=== PATIENT | male | born 1965 | race Caucasian/White ===

== ENCOUNTER 2024-02-16 07:38 | Observation (INO) ==
--- NOTE | 2024-02-16 08:26 | Emergency Department Note ---
History of Present Illness General Chief complaint: Leg Injury/Pain Stated complaint: RIGHT LEG PAIN - Time Seen by Provider: 02/16/24 08:02 History of Present Illness Maximum Pain Intensity: 7 This is a 58-year-old male with history of compartment syndrome in 2017 who presents to the emergency department via private vehicle with complaints of "right leg pain". The patient states that in 2017 he had trauma to his right leg that led to compartment syndrome and required surgery. Patient notes he has been doing well since that time. Over the past week or so he notes some sinus congestion and did a tele doc appointment and was prescribed Augmentin. He felt much better Friday. He notes that yesterday morning when he awoke he noted what he describes as "sciatica" type pain radiating down the entire right leg but notes that overnight now notes severe discomfort to the right anterior pretibial region. No real aggravating or alleviating factors but he notes that with plantarflexion of the right foot there is severe right anterior leg pain. Patient denies any fevers or chills. No nausea or vomiting. Patient does take Crestor, otherwise healthy. No abdominal pain. Minor right lower back pain in the recent past but none at the present time. No lower extremity weakness, bowel or bladder incontinence, numbness or tingling in genital region. Home Medications Medication Instructions Recorded Confirmed Type amoxicillin 500 mg-potassium 1 tab PO Q8H 02/16/24 02/16/24 History clavulanate 125 mg tablet gabapentin 300 mg capsule 300 mg PO BID 02/16/24 02/16/24 History rosuvastatin 10 mg tablet 10 mg PO DAILY 02/16/24 02/16/24 History Allergies Allergy/AdvReac Type Severity Reaction Status Date / Time No Known Allergies Allergy Unverified 02/16/24 14:04 Past Med/Surg History Problem List (Updated 02/16/24 @ 14:42 by Denton Combs PA-C) Lumbar radiculopathy, acute (Acute) Sinusitis Right leg pain (Acute) Lumbar radicular pain Medical History (Updated 02/16/24 @ 14:42 by Denton Combs PA-C) Mixed hyperlipidemia Surgical History (Updated 02/16/24 @ 14:28 by Luci Montes PA-C) H/O fasciotomy H/O hand surgery History of appendectomy Family History (Updated 02/16/24 @ 14:29 by Luci Montes PA-C) Brother Diabetes Social History Smoking Status: Never smoker Preferred Language: German Feels Safe at Home: Yes Review of Systems A total of 10 systems reviewed and were otherwise negative Physical Exam Vital Signs Vital Signs - 24 hr 02/16/24 07:48 02/16/24 08:52 02/16/24 09:56 Temperature 36.8 C Temperature Source Temporal Artery Scan Pulse Rate 76 66 Pulse Rate [Apical] Respiratory Rate 20 Respiratory Effort / Characteristics Non-Labored Spontaneous Respiratory Depth Normal Respiratory Pattern Blood Pressure 150/90 H Blood Pressure [Left Arm] Blood Pressure Mean 110 Blood Pressure Mean [Left Arm] Blood Pressure Position [Left Arm] Pulse Oximetry 97 96 Oxygen Delivery Method Room Air Room Air Sepsis Recent Fever Within 48 Hours No Sepsis New/Unexplained Change in Mental Status No Sepsis Action Taken by Nursing No Action Required 02/16/24 10:34 02/16/24 11:21 02/16/24 13:00 Temperature Temperature Source Pulse Rate Pulse Rate [Apical] 69 61 71 Respiratory Rate 18 21 18 Respiratory Effort / Characteristics Non-Labored Spontaneous Non-Labored Spontaneous Respiratory Depth Normal Normal Respiratory Pattern Regular Blood Pressure Blood Pressure [Left Arm] 131/77 106/71 118/78 Blood Pressure Mean Blood Pressure Mean [Left Arm] 95 82 91 Blood Pressure Position [Left Arm] Sitting Semi-fowlers Pulse Oximetry 96 94 97 Oxygen Delivery Method Room Air Room Air Room Air Sepsis Recent Fever Within 48 Hours Sepsis New/Unexplained Change in Mental Status Sepsis Action Taken by Nursing 02/16/24 13:55 Temperature Temperature Source Pulse Rate 89 Pulse Rate [Apical] Respiratory Rate Respiratory Effort / Characteristics Respiratory Depth Respiratory Pattern Blood Pressure Blood Pressure [Left Arm] Blood Pressure Mean Blood Pressure Mean [Left Arm] Blood Pressure Position [Left Arm] Pulse Oximetry Oxygen Delivery Method Sepsis Recent Fever Within 48 Hours Sepsis New/Unexplained Change in Mental Status Sepsis Action Taken by Nursing VITAL SIGNS - Vital signs and nursing notes were reviewed. Stable and afebrile. GENERAL - 58-year-old male appearing his stated age who is in no acute distress. Communicates well with provider and answers questions appropriately. SKIN - R anterior pretib scaring. No ecchymosis. HEAD - NC/AT. EYES - PERRL with EOMI bilaterally. Sclera anicteric. EARS - No deformities of external structures noted on gross examination bilaterally. NOSE - Midline and without cyanosis. No epistaxis or purulent drainage noted. MOUTH/OROPHARYNX - Without perioral cyanosis. NECK - Neck with FROM. No nuchal rigidity. LUNGS - Chest wall symmetric without accessory muscle use, intercostals retractions, or central cyanosis. Normal vesicular breath sounds CTA B/L. No wheezes, rales, or rhonchi appreciated. CARDIAC - RRR ABDOMEN - Abdominal contour normal without pulsations or visible masses. BS normoactive all four quadrants. No tenderness, palpable masses, hepatosplenomegaly, or ascites noted. EXTREMITIES - No clubbing or peripheral cyanosis. No pretibial edema present. Patient does have chronic changes to the integument overlying the pretibial soft tissues on the right, no palpable cord. Right dorsalis pedis pulse within normal limits. +5/5 strength noted in UE/LE bilaterally. NEUROLOGIC - Cranial nerves XII grossly intact. PSYCH -alert, oriented and pleasant on exam. Pt is very pleasant and interacts well with examiner. Course Administered Medications Discontinued Medications Dexamethasone Sodium Phosphate (DexamethasonePf 10 Mg/Ml Vial) 10 mg IV NOW ONE Stop: 02/16/24 13:22 Last Admin: 02/16/24 13:33 Dose: 10 mg Documented By: HEATH Hydromorphone HCl (Hydromorphone Inj 0.5 Mg/0.5 Ml Syr) 0.5 mg IV NOW STA Stop: 02/16/24 08:21 Last Admin: 02/16/24 08:46 Dose: 0.5 mg Documented By: BALJIT Hydromorphone HCl (Hydromorphone Inj 0.5 Mg/0.5 Ml Syr) 0.5 mg IV NOW STA Stop: 02/16/24 10:28 Last Admin: 02/16/24 10:38 Dose: 0.5 mg Documented By: ZINA Ketorolac Tromethamine (Ketorolac Tromethamine 15 Mg/Ml Vial) 10 mg IV NOW ONE Stop: 02/16/24 13:23 Last Admin: 02/16/24 13:33 Dose: 10 mg Documented By: HEATH Ondansetron HCl (Ondansetron Inj 2 Mg/Ml 2 Ml Vial) 4 mg IV NOW STA Stop: 02/16/24 08:21 Last Admin: 02/16/24 08:46 Dose: 4 mg Documented By: Admin: 02/16/24 08:45 Dose: 4 mg Documented By: BALJIT Medical Decision Making Laboratory Data 02/16/24 08:29 02/16/24 09:50 Lab Results 02/16/24 02/16/24 Range/Units 08:29 09:50 WBC 6.29 (4.8-10.8) K/ul RBC 5.38 (4.70-6.10) M/uL Hgb 14.6 (14.0-18.0) g/dl Hct 43.9 (42.0-52.0) % MCV 81.6 (80.0-100.0) fL MCH 27.1 (25.0-34.0) pg MCHC 33.3 (32.0-36.0) g/dL RDW Std Deviation 36.4 (36.4-46.3) fL RDW Coeff of Justin 12.4 (11.5-14.5) % Plt Count 241 (130-400) K/uL MPV 10.1 (9.4-12.4) fL Immature Gran % (Auto) 1.9 % Neut % (Auto) 56.6 % Lymph % (Auto) 27.3 % [place] % (Auto) 10.2 % Eos % (Auto) 3.0 % Baso % (Auto) 1.0 % Neut # (Auto) 3.56 (1.40-6.50) K/uL Lymph # (Auto) 1.72 (1.20-3.40) K/uL [place] # (Auto) 0.64 H (0.11-0.59) K/uL Eos # (Auto) 0.19 (0.00-0.50) K/uL Baso # (Auto) 0.06 (0.00-0.20) K/uL Immature Gran # (Auto) 0.12 (0.01-0.20) K/uL PT Cancelled 10.5 INR Cancelled 1.0 APTT Cancelled 23 PTT Ratio Cancelled 0.9 Sodium 140 (136-145) mmol/L Potassium TNP 4.0 Chloride 105 (98-107) mmol/L Carbon Dioxide 27 (21-32) mmol/L Anion Gap 8 (3-11) BUN 17 (6-23) mg/dl Creatinine 0.92 (0.6-1.4) mg/dl Est Cr Clr Drug Dosing 94.3 ml/min eGFR 97.02 BUN/Creatinine Ratio 18.5 (10-20) Glucose 107 H (70-99(Fasting)) mg/dl Calcium 9.5 (8.6-10.3) mg/dl Total Bilirubin 0.9 (0.2-1.0) mg/dl AST TNP 19 ALT 22 (7-52) U/L Alkaline Phosphatase 68 (34-104) U/L Total Creatine Kinase 140 (30-223) U/L Total Protein 7.8 (6.0-8.3) gm/dl Albumin 4.3 (3.4-5.0) gm/dl Globulin 3.5 (2.5-4.0) gm/dl Albumin/Globulin Ratio 1.2 (0.9-2) Imaging Data Radiologist's Impression: Duplex Scan Lower Extremity Artery 02/16/24 08:20 RIGHT LOWER EXTREMITY ARTERIAL DOPPLER ULTRASOUND CLINICAL HISTORY: Severe right leg pain. COMPARISON STUDY: No previous studies for comparison. TECHNIQUE: Grayscale, color and duplex Doppler sonography of the arterial system of the right lower extremity was performed. FINDINGS: There is minimal atherosclerotic plaque within the right lower extremity. No elevated velocities were identified. There is triphasic flow within the right common femoral, superficial femoral and popliteal arteries. There is biphasic flow within the right calf vessels. Vessels were patent. IMPRESSION: 1. No evidence for a hemodynamically significant stenosis within the right lower extremity. Minimal atherosclerotic plaque within the right lower extremity. 2. Patent vessels. ACT 112: Negative or not required by law. Electronically signed by: King Yao M.D. 02/16/2024 9:56 AM Tibia/Fibula X-Ray 02/16/24 08:20 XR tibia fibula RT 2V CLINICAL HISTORY: R leg pain, hx compartment syndrome TECHNIQUE: 2 radiographic views of the right leg were obtained. Comparison: None available at the time of this dictation. FINDINGS: Old healed fracture of the mid fibula is seen. Joint spaces are well-preserved. No soft tissue abnormality is seen. IMPRESSION: No evidence of acute osseous injury. Old healed fracture in the mid fibula is again seen. ACT 112: Negative or not required by law. Electronically signed by: Jamie Ng M.D. 02/16/2024 8:55 AM Venous Doppler Study 02/16/24 08:20 US venous doppler LE RT CLINICAL HISTORY: Severe R leg pain TECHNIQUE: Right lower extremity real-time compression venous ultrasound with Color Doppler imaging. Utilizing real-time ultrasonic imaging multiple real time high-resolution ultrasonic images with compression and noncompression maneuvers of the deep venous system in addition to color doppler imaging were performed from the common femoral vein through the proximal calf veins. COMPARISON: None available at the time of this dictation. FINDINGS/IMPRESSION: No deep venous thrombus, there is normal compressibility of the deep venous system from the common femoral vein through the proximal calf veins. No superficial venous thrombosis is identified. ACT 112: Negative or not required by law. Electronically signed by: Jamie Ng M.D. 02/16/2024 9:54 AM Lumbar Spine MRI 02/16/24 10:27 MRI OF THE LUMBAR SPINE WITHOUT CONTRAST CLINICAL HISTORY: Severe right leg pain, right low back pain. COMPARISON STUDY: No previous studies for comparison. TECHNIQUE: Utilizing a 1.5 Vandana magnet and dedicated coil, multiplanar, multiecho imaging of the lumbar spine was performed without IV contrast. FINDINGS: For purposes of numbering on this exam, the L5-S1 disc space is assigned to axial image 27 of 30. There is straightening of the lumbar lordosis. There is no lumbar spine fractures. Exam is mildly compromised by motion artifact. The conus terminates at the T12-L1 level. Paravertebral soft tissues are unremarkable. Several Schmorl's nodes are noted. Loss of height of the superior endplates of L2 on L3 is chronic. A 3.9 cm T2 hypointense lesion within the left iliac bone may contain fluid fluid levels. This is likely benign. Moderate multilevel degenerative disc disease and mild facet arthrosis is present. L1-2: The central canal and neural foramen are patent. L2-3: There is mild disc bulge. The central canal and neural foramen are patent. L3-4: There is mild disc bulge. The central canal is patent. There is mild bilateral neural foraminal stenosis. L4-5: Moderate to space narrowing is noted with disc bulge. Superimposed right foraminal disc protrusion is present. There is moderate narrowing of the right lateral recess and moderate to severe narrowing of the right neural foramen. There is moderate narrowing of the left neural foramen. There is no significant central canal stenosis. L5-S1: Moderate disc space narrowing is noted. There is disc bulge. Right foraminal annular tear with disc protrusion is present. There is mild facet arthrosis. The central canal is patent. There is moderate bilateral neural foraminal stenosis, greater on the left. IMPRESSION: 1. Moderate multilevel degenerative disc disease and moderate facet arthrosis within the lumbar spine. 2. Multilevel disc bulges. Superimposed right foraminal disc protrusion at L4- L5. Findings result in moderate narrowing of the right lateral recess and moderate to severe narrowing of the right neural foramen. 3. Multilevel neural foraminal stenosis, as above. 4. No significant central canal stenosis. 5. Exam mildly compromised by motion artifact. No acute fractures. ACT 112: Negative or not required by law. Electronically signed by: King Yao M.D. 02/16/2024 12:28 PM MDM Narrative Patient was seen and evaluated as above in room D04. Review was performed of triage nursing notes and vital signs. Patient presents today for assessment of right leg pain. Pain is distal right lower extremity between the knee and the ankle at the anterior/lateral aspect. On my assessment the patient appears to be in pain, and notes pain specifically between the knee and the ankle on the right side. Keeping this there was some discomfort rating down the right leg consistent with lumbar radiculopathy however that has improved. On assessment, compartment syndrome is felt to be less likely and I do favor this to be lumbar radiculopathy. IV access was established. Labs were drawn. Doppler studies of the artery and vein of the right lower extremity were obtained and were essentially negative for acute process. Tip/fib with chronic findings. I did discuss presentation with Dr. Winkler of orthopedics at 10:35 AM. Please refer to his consultation. MR L-spine also ordered and does have findings consistent with the right side lumbar radiculopathy. Patient medicated with IV Dilaudid, IV Zofran for nausea, IV Toradol. I did discuss findings with Dr. Gomez of spine. We discussed options. I discussed options with the patient. We will proceed with inpatient management, spine consult, pain control. Dr. Gomez and I also agree with steroids. Case discussed with the hospitalist service. Please refer to further documentation regarding his stay. GCS: 15 In the evaluation and treatment of this patient the following differential diagnoses were entertained: Fracture, dislocation, subluxation, contusion, sprain, strain, lumbar radiculopathy, among others Impression & Plan Right leg pain, Lumbar radiculopathy, acute Discharge Plan Visit Data Chief Complaint: Leg Injury/Pain Stated Complaint: RIGHT LEG PAIN - ED Provider: Colten Fairchild ED Midlevel Provider: Denton Combs Discharge Problem: Right leg pain, Lumbar radiculopathy, acute Patient Disposition: Admitted As Inpatient Condition: Good Forms Stand Alone Forms: [facility] Prescriptions Prescriptions: No Action gabapentin 300 mg capsule 300 mg PO BID amoxicillin-pot clavulanate 500-125 mg tablet 1 tab PO Q8H Rx Instructions: Start Date 02/13/24 x7 day supply rosuvastatin 10 mg tablet 10 mg PO DAILY Referrals Referrals: PCP,NO [Physician] -
[2024-02-16] MEDS: ONDANSETRON INJ 2 MG/ML 2 ML VIAL IV STA (08:45)
[2024-02-16] MEDS: HYDROmorphone INJ 0.5 MG/0.5 ML SYR IV STA ×2 (08:46→10:38)
[2024-02-16 08:53] LABS: Basophils # (auto) 0.06 K/uL (0.00-0.20); Eosinophils # (auto) 0.19 K/uL (0.00-0.50); Hematocrit (blood only) 43.9 % (42.0-52.0); Hemoglobin 14.6 g/dl (14.0-18.0); Immature Granulocytes # (auto) 0.12 K/uL (0.01-0.20); Immature Granulocytes % (auto) 1.9 %; Lymphocytes # (auto) 1.72 K/uL (1.20-3.40); Lymphocytes % (auto) 27.3 %; Mean Corpuscular Hemoglobin 27.1 pg (25.0-34.0); Mean Corpuscular Hgb Conc 33.3 g/dL (32.0-36.0); Mean Corpuscular Volume 81.6 fL (80.0-100.0); Mean Platelet Volume 10.1 fL (9.4-12.4); Monocytes # (auto) 0.64 K/uL (0.11-0.59); Monocytes % (auto) 10.2 %; Neutrophils # (auto) 3.56 K/uL (1.40-6.50); Neutrophils % (auto) 56.6 %; Platelet Count 241 K/uL (130-400); RDW Coefficient of Variation 12.4 % (11.5-14.5); RDW Standard Deviation 36.4 fL (36.4-46.3); Red Blood Count 5.38 M/uL (4.70-6.10); White Blood Count 6.29 K/ul (4.8-10.8)
--- NOTE | 2024-02-16 08:57 | XRay Report ---
XR tibia fibula RT 2V CLINICAL HISTORY: R leg pain, hx compartment syndrome TECHNIQUE: 2 radiographic views of the right leg were obtained. Comparison: None available at the time of this dictation. FINDINGS: Old healed fracture of the mid fibula is seen. Joint spaces are well-preserved. No soft tissue abnorm ality is seen. IMPRESSION: No evidence of acute osseous injury. Old healed fracture in the mid fibula is again seen. ACT 112: Negative or not required by law. Electronically signed by: Jamie Ng M.D. 02/16/2024 8:55 AM
[2024-02-16 09:08] LABS: Alanine Aminotransferase 22 U/L (7-52); Albumin Globulin Ratio 1.2 (0.9-2); Albumin Level 4.3 gm/dl (3.4-5.0); Alkaline Phosphatase 68 U/L (34-104); Anion Gap 8 (3-11); BUN Creatinine Ratio 18.5 (10-20); Bilirubin,Total 0.9 mg/dl (0.2-1.0); Blood Urea Nitrogen 17 mg/dl (6-23); Calcium 9.5 mg/dl (8.6-10.3); Carbon Dioxide 27 mmol/L (21-32); Chloride 105 mmol/L (98-107); Creatine Kinase 140 U/L (30-223); Creatinine Clr Calc Pharmacy 94.3 ml/min; Globulin 3.5 gm/dl (2.5-4.0); Glucose 107 mg/dl (70-99(Fasting)); Sodium 140 mmol/L (136-145); Total Protein 7.8 gm/dl (6.0-8.3)
--- NOTE | 2024-02-16 09:55 | Ultrasound Report ---
US venous doppler LE RT CLINICAL HISTORY: Severe R leg pain TECHNIQUE: Right lower extremity real-time compression venous ultrasound with Color Doppler imaging. Utilizing real-time ultrasonic imaging multiple real time high-resolution ultrasonic images with comp ression and noncompression maneuvers of the deep venous system in addition to color doppler imaging w ere performed from the common femoral vein through the proximal calf veins. COMPARISON: None available at the time of this dictation. FINDINGS/IMPRESSION: No deep venous thrombus, there is normal compressibility of the deep venous system from the common fe moral vein through the proximal calf veins. No superficial venous thrombosis is identified. ACT 112: Negative or not required by law. Electronically signed by: Jamie Ng M.D. 02/16/2024 9:54 AM
--- NOTE | 2024-02-16 09:57 | Ultrasound Report ---
RIGHT LOWER EXTREMITY ARTERIAL DOPPLER ULTRASOUND CLINICAL HISTORY: Severe right leg pain. COMPARISON STUDY: No previous studies for comparison. TECHNIQUE: Grayscale, color and duplex Doppler sonography of the arterial system of the right lower e xtremity was performed. FINDINGS: There is minimal atherosclerotic plaque within the right lower extremity. No elevated veloc ities were identified. There is triphasic flow within the right common femoral, superficial femoral a nd popliteal arteries. There is biphasic flow within the right calf vessels. Vessels were patent. IMPRESSION: 1. No evidence for a hemodynamically significant stenosis within the right lower extremity. Minimal a therosclerotic plaque within the right lower extremity. 2. Patent vessels. ACT 112: Negative or not required by law. Electronically signed by: King Yao M.D. 02/16/2024 9:56 AM
[2024-02-16 10:28] LABS: Partial Thromboplastin Ratio 0.9; Partial Thromboplastin Time 23 Seconds (21-31); Prothrombin Time 10.5 Seconds (9.0-12.0)
--- NOTE | 2024-02-16 12:29 | Magnetic Resonance Report ---
MRI OF THE LUMBAR SPINE WITHOUT CONTRAST CLINICAL HISTORY: Severe right leg pain, right low back pain. COMPARISON STUDY: No previous studies for comparison. TECHNIQUE: Utilizing a 1.5 Vandana magnet and dedicated coil, multiplanar, [facility] was performed without IV contrast. FINDINGS: For purposes of numbering on this exam, the L5-S1 disc space is assigned to axial image 27 of 30. The re is straightening of the lumbar lordosis. There is no lumbar spine fractures. Exam is mildly compro mised by motion artifact. The conus terminates at the T12-L1 level. Paravertebral soft tissues are un remarkable. Several Schmorl's nodes are noted. Loss of height of the superior endplates of L2 on L3 i s chronic. A 3.9 cm T2 hypointense lesion within the left iliac bone may contain fluid fluid levels. This is likely benign. Moderate multilevel degenerative disc disease and mild facet arthrosis is pres ent. L1-2: The central canal and neural foramen are patent. L2-3: There is mild disc bulge. The central canal and neural foramen are patent. L3-4: There is mild disc bulge. The central canal is patent. There is mild bilateral neural foraminal stenosis. L4-5: Moderate to space narrowing is noted with disc bulge. Superimposed right foraminal disc protrus ion is present. There is moderate narrowing of the right lateral recess and moderate to severe narrow ing of the right neural foramen. There is moderate narrowing of the left neural foramen. There is no significant central canal stenosis. L5-S1: Moderate disc space narrowing is noted. There is disc bulge. Right foraminal annular tear with disc protrusion is present. There is mild facet arthrosis. The central canal is patent. There is mod erate bilateral neural foraminal stenosis, greater on the left. IMPRESSION: 1. Moderate multilevel degenerative disc disease and moderate facet arthrosis within the lumbar spine . 2. Multilevel disc bulges. Superimposed right foraminal disc protrusion at L4-L5. Findings result in moderate narrowing of the right lateral recess and moderate to severe narrowing of the right neural f oramen. 3. Multilevel neural foraminal stenosis, as above. 4. No significant central canal stenosis. 5. Exam mildly compromised by motion artifact. No acute fractures. ACT 112: Negative or not required by law. Electronically signed by: King Yao M.D. 02/16/2024 12:28 PM
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
[2024-02-16] MEDS: KETOROLAC TROMETHAMINE 15 MG/ML VIAL IV ONE (13:33)
[2024-02-16] MEDS: dexAMETHasone**PF** 10 MG/ML VIAL IV ONE (13:33)
--- NOTE | 2024-02-16 14:33 | History & Physical Report ---
<Statement entered by Renetta Alcaraz MD - 02/16/24 16:24> I have reviewed vital signs, chart notes, labs and imaging. I have personally seen, evaluated and examined the patient. I have also discussed the management of the patient with the K[facility]AD[facility] and I agree with the exam findings documented in the history and physical examination and the documented assessment and plan unless otherwise stated below. Colten presents with acute severe right lower extremity L4/5 radicular pain. I do not detect any obvious weakness on exam including dorsi and plantarflexion spinal MRI with right sided foraminal disc bulge at this level we will treat his acute pain with scheduled acetaminophen, I ordered a few more doses of scheduled low-dose ketorolac, dexamethasone, his usual gabapentin, and as needed hydromorphone pain has already improved somewhat with ED treatment he is able to sit/lie down which she has had difficulty with for few days. Plan to have Dr. Gomez consult tomorrow or evaluate as an outpatient Date of Service February 16, 2024 Assessment & Plan (1) Lumbar radiculopathy, acute: Plan: - Place in observation to med/surg unit - Regular diet as tolerated - IV Decadron will be continued at 6mg IV daily, next dose in AM - PO APAP 1g TID prn mild pain, headache, fever - Dilaudid 0.25mg IV q4 prn moderate pain and 0.5mg q4 PRN severe pain - Continue gabapentin 300mg BID (from home but does not take consistently per pt) - VTE prophylaxis with Lovenox 40mg sq daily to start tomorrow AM - Orthospine consult placed, appreciate assistance - PT/OT eval and treat (2) Sinusitis: Plan: Acute - Contacted telemed and was started on Augmentin which has been continued (3) Mixed hyperlipidemia: Plan: Chronic - Continue Crestor Plan As outlined above. AM labs ordered including CBC, CMP, and Mag. Above plan of care d/w Dr. Alcaraz who will also see and evaluate this patient. Further orders as warranted per attending. History of Present Illness Chief Complaint: Right leg pain Primary Care Provider: Ernestine Marshall DO Colten is a 58 yo M with a pmhx of compartment syndrome in RLE due to traumatic injury as well as hyperlipidemia chronically managed with Crestor who presents to the ER today accompanied by his c/o severe right leg pain. Patient reports that he woke from sleep yesterday AM and was having pain in his right buttocks primarily. Throughout the day, the pain intensified and radiated down his right leg into his foot. Pain was exacerbated by walking. Today, he indicates that his pain primarily is focused in his right leg and radiates down to the level of his ankle. He denies lower back pain or specific injury to his back. He is very active per his and frequently participates in motocross racing and other strenuous activities. In the ER, his initial imaging was unremarkable, there was no evidence of compartment syndrome. He was medicated with a dose of Decadron, 2 doses of IV Dilaudid and a dose of Ketorolac. He is currently resting in a seated position, reports that his pain has improved. He is having trouble walking and admits he hasn't slept due to the uncontrolled pain. He denies chest pain or dyspnea. No prior h/o DVT or PE. He underwent lumbar MRI which demonstrated multilevel degenerative disc disease and disc bulges. He has a foraminal disc bulge at L4-5 on the right resulting in moderate narrowing of the lateral recess and moderate to severe narrowing of the right neural foramen. He was seen by orthopedics who had no concerns with the leg but recommended orthospine eval. Case was briefly discussed with Dr. Gomez via phone who stated he would see patient in house if admitted. Pt will be placed in observation for further care under hospital medicine service. Allergies Allergy/AdvReac Type Severity Reaction Status Date / Time No Known Allergies Allergy Unverified 02/16/24 14:04 Home Medications Medication Instructions Recorded Confirmed Type amoxicillin 500 mg-potassium 1 tab PO Q8H 02/16/24 02/16/24 History clavulanate 125 mg tablet gabapentin 300 mg capsule 300 mg PO BID 02/16/24 02/16/24 History rosuvastatin 10 mg tablet 10 mg PO DAILY 02/16/24 02/16/24 History Past Med/Surg History Problem List (Updated 02/16/24 @ 14:28 by Luci Montes PA-C) Lumbar radiculopathy, acute Sinusitis Right leg pain Lumbar radicular pain Medical History (Updated 02/16/24 @ 14:28 by Luci A. Montes, PA-C) Mixed hyperlipidemia Surgical History (Updated 02/16/24 @ 14:28 by Luci Montes PA-C) H/O fasciotomy H/O hand surgery History of appendectomy Family History (Updated 02/16/24 @ 14:29 by Luci Montes PA-C) Brother Diabetes Social History Smoking Status: Never smoker Preferred Language: Wolof Feels Safe at Home: Yes Review of Systems 2 Review of Systems: All systems reviewed and are unremarkable except as noted in HPI and below. Denies fever, chills, fatigue, headache, nasal congestion, sore throat, cough, chest pain, shortness of breath, palpitations, orthopnea, PND, abdominal pain, n/v/d, constipation, dysuria, hematuria, frequency, easy bruising or bleeding, skin lesions or rashes. Physical Exam 2 Physical Exam: GENERAL: 58 yo well nourished WM. NAD. EYES: EOMI. PERRLA. Anicteric. HENT: Moist mucous membranes. No scleral icterus. No cervical lymphadenopathy. LUNGS: Clear to auscultation bilaterally. No W/R/R. CARDIOVASCULAR: Regular rate and rhythm. No M/G/R. No JVD. ABDOMEN: Soft, non-tender and non-distended. Bowel sounds normoactive x 4 quad. EXTREMITIES: Post surgical skin changes noted over lateral aspect of distal RLE c/w fasciotomy. No edema. Non-tender. Peripheral pulses +2/4. NEUROLOGIC: A&O x3. No focal neurological deficits. CN II-XII grossly intact. PSYCHIATRIC: Cooperative. Appropriate mood and affect. SKIN: Warm, dry, intact. No rashes or lesions. Results & Data Results & Data Vital Signs (Past 12 Hours) Vital Signs Temp Pulse Pulse Resp BP BP Pulse Ox 02/16/24 13:55 89 02/16/24 13:00 71 18 118/78 97 02/16/24 11:21 61 21 106/71 94 02/16/24 10:34 69 18 131/77 96 02/16/24 09:56 66 02/16/24 08:52 96 02/16/24 07:48 36.8 C 76 20 150/90 H 97 O2 Del Method 02/16/24 13:55 02/16/24 13:00 Room Air 12/30/24 11:21 Room Air 02/16/24 10:34 Room Air 02/16/24 09:56 02/16/24 08:52 Room Air 02/16/24 07:48 Room Air Laboratory Results 02/16/24 08:29 02/16/24 09:50 Diagnostic Findings Duplex Scan Lower Extremity Artery 02/16/24 08:20 RIGHT LOWER EXTREMITY ARTERIAL DOPPLER ULTRASOUND CLINICAL HISTORY: Severe right leg pain. COMPARISON STUDY: No previous studies for comparison. TECHNIQUE: Grayscale, color and duplex Doppler sonography of the arterial system of the right lower extremity was performed. FINDINGS: There is minimal atherosclerotic plaque within the right lower extremity. No elevated velocities were identified. There is triphasic flow within the right common femoral, superficial femoral and popliteal arteries. There is biphasic flow within the right calf vessels. Vessels were patent. IMPRESSION: 1. No evidence for a hemodynamically significant stenosis within the right lower extremity. Minimal atherosclerotic plaque within the right lower extremity. 2. Patent vessels. ACT 112: Negative or not required by law. Electronically signed by: King Yao M.D. 02/16/2024 9:56 AM Tibia/Fibula X-Ray 02/16/24 08:20 XR tibia fibula RT 2V CLINICAL HISTORY: R leg pain, hx compartment syndrome TECHNIQUE: 2 radiographic views of the right leg were obtained. Comparison: None available at the time of this dictation. FINDINGS: Old healed fracture of the mid fibula is seen. Joint spaces are well-preserved. No soft tissue abnormality is seen. IMPRESSION: No evidence of acute osseous injury. Old healed fracture in the mid fibula is again seen. ACT 112: Negative or not required by law. Electronically signed by: Jamie Ng M.D. 02/16/2024 8:55 AM Venous Doppler Study 02/16/24 08:20 US venous doppler LE RT CLINICAL HISTORY: Severe R leg pain TECHNIQUE: Right lower extremity real-time compression venous ultrasound with Color Doppler imaging. Utilizing real-time ultrasonic imaging multiple real time high-resolution ultrasonic images with compression and noncompression maneuvers of the deep venous system in addition to color doppler imaging were performed from the common femoral vein through the proximal calf veins. COMPARISON: None available at the time of this dictation. FINDINGS/IMPRESSION: No deep venous thrombus, there is normal compressibility of the deep venous system from the common femoral vein through the proximal calf veins. No superficial venous thrombosis is identified. ACT 112: Negative or not required by law. Electronically signed by: Jamie Ng M.D. 02/16/2024 9:54 AM Lumbar Spine MRI 02/16/24 10:27 MRI OF THE LUMBAR SPINE WITHOUT CONTRAST CLINICAL HISTORY: Severe right leg pain, right low back pain. COMPARISON STUDY: No previous studies for comparison. TECHNIQUE: Utilizing a 1.5 Vandana magnet and dedicated coil, multiplanar, multiecho imaging of the lumbar spine was performed without IV contrast. FINDINGS: For purposes of numbering on this exam, the L5-S1 disc space is assigned to axial image 27 of 30. There is straightening of the lumbar lordosis. There is no lumbar spine fractures. Exam is mildly compromised by motion artifact. The conus terminates at the T12-L1 level. Paravertebral soft tissues are unremarkable. Several Schmorl's nodes are noted. Loss of height of the superior endplates of L2 on L3 is chronic. A 3.9 cm T2 hypointense lesion within the left iliac bone may contain fluid fluid levels. This is likely benign. Moderate multilevel degenerative disc disease and mild facet arthrosis is present. L1-2: The central canal and neural foramen are patent. L2-3: There is mild disc bulge. The central canal and neural foramen are patent. L3-4: There is mild disc bulge. The central canal is patent. There is mild bilateral neural foraminal stenosis. L4-5: Moderate to space narrowing is noted with disc bulge. Superimposed right foraminal disc protrusion is present. There is moderate narrowing of the right lateral recess and moderate to severe narrowing of the right neural foramen. There is moderate narrowing of the left neural foramen. There is no significant central canal stenosis. L5-S1: Moderate disc space narrowing is noted. There is disc bulge. Right foraminal annular tear with disc protrusion is present. There is mild facet arthrosis. The central canal is patent. There is moderate bilateral neural foraminal stenosis, greater on the left. IMPRESSION: 1. Moderate multilevel degenerative disc disease and moderate facet arthrosis within the lumbar spine. 2. Multilevel disc bulges. Superimposed right foraminal disc protrusion at L4- L5. Findings result in moderate narrowing of the right lateral recess and moderate to severe narrowing of the right neural foramen. 3. Multilevel neural foraminal stenosis, as above. 4. No significant central canal stenosis. 5. Exam mildly compromised by motion artifact. No acute fractures. ACT 112: Negative or not required by law. Electronically signed by: King Yao M.D. 02/16/2024 12:28 PM Code Status & VTE Plan Code Status Discussed with patient = full code VTE Prophylaxis Plan VTE Prophylaxis will be ordered: Yes PG Care Time/CCT Total # of Minutes Spent Total Time Spent with Patient: Total time spent is greater than 50% in coordination of care (as documented) at patient's floor/unit and/or counseling patient: 60 minutes Coding Level of Care Code 45800 INT INP/OBS CARE 2/55MIN Diagnoses Lumbar radiculopathy, acute M54.16 Sinusitis J32.9 Mixed hyperlipidemia E78.2
[2024-02-16] MEDS ORDERED: MAGNESIUM HYDROXIDE SUSP 30 ML UDC PO PRN (15:30)
[2024-02-16] MEDS ORDERED: HYDROmorphone INJ 0.5 MG/0.5 ML SYR IV PRN (15:30)
[2024-02-16] MEDS ORDERED: ONDANSETRON INJ 2 MG/ML 2 ML VIAL IV PRN (15:30)
[2024-02-16] MEDS ORDERED: ALUMINUM/MAGNESIUM SUSP 30 ML UDC PO PRN (15:30)
[2024-02-16] MEDS ORDERED: MELATONIN 3 MG TAB PO PRN (15:30)
[2024-02-16] MEDS: AMOXICILLIN/CLAVULANATE 500 MG TAB PO SCH (16:05)
[2024-02-16] MEDS: HYDROmorphone INJ 0.5 MG/0.5 ML SYR IV PRN (16:10)
[2024-02-16 20:01] VITALS: BP 127/75; PULSE 90; RESP 18; TEMP 97.9; O2SAT 92
[2024-02-16] MEDS: KETOROLAC TROMETHAMINE 15 MG/ML VIAL IV SCH (20:13)
[2024-02-16] MEDS: ACETAMINOPHEN 500 MG TAB PO SCH (20:13)
[2024-02-16] MEDS: GABAPENTIN 300 MG CAP PO SCH (20:14)
--- OUTSIDE RECORDS SUMMARY | 2024-02-16 22:30 | External Medical Summary | Continuity of Care Document ---
Author Name Unknown Organization [address] [id number] Care Team Providers Care Regional Education Manager Name Role Phone Ernestine Marshall Primary Care Physician [phone] Encounter [facility] [id number] Date(s): 09/11/23 - 09/11/[address] [address] [phone] Encounter Diagnosis Cough(Discharge Diagnosis) - 09/11/23 Cerumen impaction(Discharge Diagnosis) - 09/11/23 Discharge Disposition: Home or Self Care Attending Physician: MEDHAT Porter Danielle B Referring Physician: MEDHAT Porter Danielle B Allergies, Adverse Reactions, Alerts No Known Allergies Assessment and Plan Extracted from: Title:Acute Visit Note Author:MEDHAT Porter Dani elle B Date:09/11/23 1.Cough Suspectcough is relatedto postnasal drainage. Exam grossly unremarkable. Will have patient start oral antihistaminesuch as Zyrtec or Iva prior to bedtime. If symptoms do not resolveover the next week, will have patient trial short-term of famotidineto see if cough is related to silent reflux. Ifstill no improvement in symptoms,will order chest x-ray and refer to ENT. -Follow-up if symptoms worsen or fail to improve. 2.Cerumen impaction Cerumen impaction in left earwheretympanic membrane was initiallycompletely obscured.Ear flush her left ear done in office todaywithout difficulty. Patient tolerated procedure well. -Follow-up if symptoms worsen or fail to improve. -Patient verbalizes understanding regarding plan of care and all questions answered. Immunizations Given and Recorded Vaccine Date Status Refusal Reason tetanus/diphtheria/pertuss, acel (Tdap) 06/20/22 R ecorded tetanus/diphtheria/pertuss, acel (Tdap) 01/19/13 R ecorded tetanus/diphtheria/pertuss, acel (Tdap) 02/17/05 R ecorded SARS-CoV-2 (COVID-19) Ad26 vaccine 02/15/21 Record ed Medications gabapentin 300 mg oral capsule Start: 08/06/23 4:27:00 PM EDT, 1 cap, PO, bid, Disp# 180 cap, Refills: 1, Pharmacy: [facility] #[id number] Start Date: 08/06/23 Stop Date: 02/02/24 Status: Ordered rosuvastatin 10 mg oral tablet Start: 08/06/23 4:27:00 PM EDT, 1 tab, PO, Daily, Disp# 90 tab, Refills: 3, Pharmacy: [facility] #[id number] Start Date: 08/06/23 Stop Date: 07/31/24 Status: Ordered Mental Status 09/11/23 Barriers to Learning one year None evide nt Mandatory Health Literacy Documentation Yes Health Literacy Communication Barriers N ever Primary Language Chilean Problem List Condition Confirmation Course Effective Dates Status H ealth Status Informant Atherosclerosis of aorta Confirmed Active Renal artery anomaly Confirmed Active Dyslipidemia Confirmed Active [place] disease Confirmed Active History of basal cell cancer Confirmed Active Neuropathy of leg Confirmed Active Body mass index [BMI] 29.0-29.9, adult Confirmed Active Prostate cancer screening Confirmed Active Tinea versicolor Confirmed Active 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 Vital Signs Most recent to oldest [Reference Range]: 1 Patient Weight 87.6 kg (09/11/23 9:34 AM) Temperature [36.5-37.9 DegC] 36.7 DegC (09/11/23 9:34 AM) Heart Rate 76 bpm (09/11/23 9:34 AM) Respiratory Rate 17 br/min (09/11/23 9:34 AM) Blood Pressure 118/74mmHg (09/11/23 9:34 AM) Cuff Pulse Pressure 44 mmHg (09/11/23 9:34 AM) Social History Social History Type Response Smoking Status Never smoked cigaret daisy Sex Male Sex Representation Male (finding) FCM Outpt Note * MEDHAT Porter Danielle B: PERFORM Event Display: FCM Outpt Note Authored Date: [id number] Chief Complaint Cough and congestion X 5 weeks. Went to urgent care 5 weeks ago and was told to take advil, cold and sinus and mucinex DM. Went back a week later and was prescribed 10 days of amoxicillin. Continues to have dry cough and congestion. History of Present Illness Patient is a 57-year-old male here for cough x 1 month. Patient states he was initially sick withcongestion, sore throat, coughx 2 weeks.Then started on amoxicillin x 10 days. He states that congestionhas improved but still has residualnonproductive cough. Cough seems to be worse at night when he first lays down. Denies fever, chills, shortness of breath, palpitations. Review of Systems Negative unless stated in HPI. Physical Exam Vitals & Measurements T:36.7C HR:76(Monitored) RR:17 BP:118/74 SpO2:98% WT:87.600kg(Dosing) WT:87.6kg PHQ2 Data(Data Documented on:09/11/2023 09:34) Emotional health assessment NEGATIVE CONSTITUTIONAL: Well-developed, well nourished. No acute distress. NEUROLOGICAL: Patient alert, orientated, memory intact. Gait steady. HEENT: Head is normocephalic. Eyes- symmetrical, no erythema or discharge. Ears- Canals without erythema or discharge. Tympanic membrane intact, no erythema or effusion present. Nares- are patent bilaterally, no discharge noted. Oral- Oropharynx is clear, no erythema or exudate. Oral mucosa pink and moist. Lips are pink and moist, no lesions. Neck- Supple, no lymphadenopathy. LUNGS: Respirations even and unlabored, chest expansion symmetrical. Lung sounds clear in all lobes, no wheezing, crackles, or adventitious breath sounds. HEART: Rate and rhythm regular. No cardiac murmur, click, or rub noted. Similar to -yea MUSCULOSKELETAL/EXTREMITIES: Extremities are intact, no redness or edema noted of upper or lower extremity. INTEGUMENTARY: Skindry, warm to touch. No rash, wounds, lesions noted on visible skin. PSYCHOSOCIAL: Calm and cooperative, interacts appropriately withstaff. Assessment/Plan 1.Cough Suspectcough is relatedto postnasal drainage. Exam grossly unremarkable. Will have patient start oral antihistaminesuch as Zyrtec or Iva prior to bedtime. If symptoms do not resolveover the next week, will have patient trial short-term of famotidineto see if cough is related to silent reflux. Ifstill no improvement in symptoms,will order chest x-ray and refer to ENT. -Follow-up if symptoms worsen or fail to improve. 2.Cerumen impaction Cerumen impaction in left earwheretympanic membrane was initiallycompletely obscured.Ear flush her left ear done in office todaywithout difficulty. Patient tolerated procedure well. -Follow-up if symptoms worsen or fail to improve. -Patient verbalizes understanding regarding plan of care and all questions answered. 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 Type II diabetes mellitus: Brother. Health Status Family Member(s) Family Member(s) Relationship: Brother, Age: 56 Years, Cause: DM Immunizations Vaccine Date Status tetanus/diphtheria/pertuss, acel (Tdap) 06/20/2022 Recorded SARS-CoV-2 (COVID-19) Ad26 vaccine 02/15/2021 Recorded tetanus/diphtheria/pertuss, acel (Tdap) 01/19/2013 Recorded tetanus/diphtheria/pertuss, acel (Tdap) 02/17/2005 Recorded Recommendations Health Maintenance Pending(in the next year) Due Adult Influenza Vaccine due08/17/23and every 1year Adult COVID-19 Vaccination due09/11/23Unknown Frequency Adult Social Determinants of Health Screening due09/11/23Unknown Frequency Colorectal Cancer Screening due09/11/23Unknown Frequency Shingles Vaccine due09/11/23One-time only Satisfied(in the past 1 year) Satisfied Body Mass Index on08/06/23.Satisfied by JOSE Humphreys Sharon Electronic Signature on File Electronically Reviewed/Signed by: MEDHAT Gaines Author Signature Dt/Tm:09/11/2023 12:26 PM Family Medicine DBN Patient Care team information Care Team Personnel Name: DO Marshall Allison B Position: Physician - Family Med Member Role: Primary Care Provider Address: [address] [place] [phone]"
[2024-02-17 06:15] LABS: Basophils # (auto) 0.02 K/uL (0.00-0.20); Basophils % (auto) 0.1 %; Hematocrit (blood only) 41.4 % (42.0-52.0); Hemoglobin 13.9 g/dl (14.0-18.0); Immature Granulocytes # (auto) 0.14 K/uL (0.01-0.20); Immature Granulocytes % (auto) 0.9 %; Lymphocytes # (auto) 1.16 K/uL (1.20-3.40); Lymphocytes % (auto) 7.1 %; Mean Corpuscular Hemoglobin 27.7 pg (25.0-34.0); Mean Corpuscular Hgb Conc 33.6 g/dL (32.0-36.0); Mean Corpuscular Volume 82.5 fL (80.0-100.0); Mean Platelet Volume 10.2 fL (9.4-12.4); Monocytes # (auto) 0.74 K/uL (0.11-0.59); Monocytes % (auto) 4.5 %; Neutrophils # (auto) 14.21 K/uL (1.40-6.50); Neutrophils % (auto) 87.4 %; Platelet Count 250 K/uL (130-400); RDW Coefficient of Variation 12.2 % (11.5-14.5); RDW Standard Deviation 37.2 fL (36.4-46.3); Red Blood Count 5.02 M/uL (4.70-6.10); White Blood Count 16.27 K/ul (4.8-10.8)
[2024-02-17 06:32] LABS: BUN Creatinine Ratio 22.4 (10-20); Calcium 9.7 mg/dl (8.6-10.3); Creatinine Clr Calc Pharmacy 88.5 ml/min; Magnesium 1.9 mg/dl (1.7-2.4); Potassium 4.2 mmol/L (3.5-5.1)
[2024-02-17] MEDS: ROSUVASTATIN CALCIUM 10 MG TAB PO SCH (08:53)
[2024-02-17] MEDS: dexAMETHasone 6 MG in SYRINGE 0 ML IV SCH (08:53)
[2024-02-17] MEDS: ENOXAPARIN INJ 40 MG/0.4 ML SYR SQ SCH (08:54)
[2024-02-17] MEDS ORDERED: DEXAMETHASONE SOD INJ 4 MG/ML VIAL IV SCH (09:00)
--- NOTE | 2024-02-17 13:13 | Discharge Summary ---
Discharge Summary Date of Service date of admission - February 16, 2024 date of discharge - February 17, 2024 Principal Dx & Hospital Course #1 = Principal Diagnosis (1) Lumbar radiculopathy, acute: patient's RLE symptoms were due to lumbar radiculopathy from lumbar degenerative disc disease he ultimately underwent MRI of the lumbar spine and this demonstrated multi- level DDD, worst at L4-L5 the L4-L5 disease was the likely culprit for his symptoms he was seen by Ortho-Spine transforaminal injection by pain management was recommended as a future treatment option patient was not interested in surgical intervention at this time during his brief stay a combination of IV steroids with pain meds provided considerable pain relief patient was discharged to home on the following regimen of meds to help control his pain - * dexamethasone taper * baclofen prn * norco prn * gabapentin - he has been on such in the past, but he admitted he had not been taking it regularly * advised restarting gabapentin at 300mg HS for a few days, then increase to BID dosing, then in 1-2 weeks try TID dosing prior to discharge he was seen by physical therapy PT advised outpatient therapy and patient in quite interested in such patient will f/u with Dr Carmelo Gomez, ortho-spine with [facility], within a couple of weeks of discharge he should also f/u with his PCP for this problem (2) Sinusitis: recently was placed on Augmentin for acute sinusitis this will be continued at prior dosing (3) Mixed hyperlipidemia: continue Crestor (4) Hyperglycemia: glucose was 175 on routine labs certainly the steroids being used for #1 above will worsen the hyperglycemia, but he will need follow-up with his PCP to screen for pre-DM or DM patient made aware of the high glucose (5) Compartment syndrome of lower extremity: right leg due to trauma required fasciotomy for such several years ago there was NO evidence of compartment syndrome of the RLE during this hosp italization Admission HPI Per Admitting Provider Colten is a 58 yo M with a pmhx of compartment syndrome in RLE due to traumatic injury as well as hyperlipidemia chronically managed with Crestor who presents to the ER today accompanied by his c/o severe right leg pain. Patient reports that he woke from sleep yesterday AM and was having pain in his right buttocks primarily. Throughout the day, the pain intensified and radiated down his right leg into his foot. Pain was exacerbated by walking. Today, he indicates that his pain primarily is focused in his right leg and radiates down to the level of his ankle. He denies lower back pain or specific injury to his back. He is very active per his and frequently participates in motocross racing and other strenuous activities. In the ER, his initial imaging was unremarkable, there was no evidence of compartment syndrome. He was medicated with a dose of Decadron, 2 doses of IV Dilaudid and a dose of Ketorolac. He is currently resting in a seated position, reports that his pain has improved. He is having trouble walking and admits he hasn't slept due to the uncontrolled pain. He denies chest pain or dyspnea. No prior h/o DVT or PE. He underwent lumbar MRI which demonstrated multilevel degenerative disc disease and disc bulges. He has a foraminal disc bulge at L4-5 on the right resulting in moderate narrowing of the lateral recess and moderate to severe narrowing of the right neural foramen. He was seen by orthopedics who had no concerns with the leg but recommended orthospine eval. Case was briefly discussed with Dr. Gomez via phone who stated he would see patient in house if admitted. Pt will be placed in observation for further care under hospital medicine service. Discharge Exam gen - NAD, pleasant neck - no JVD mouth - MMM heart - RRR, s1 s2, no murmur lungs - CTA b/l abd - soft NT ND BS+ ext - no edema, pulses 2+ b/l neuro - strength 5/5 b/l hip flexion; strength 5/5 b/l knee extension/flexion; 5/5 strength ankle dorsiflexion/plantarflexion; gait - mild limp due to RLE pain skin -multiple scars on the right jolley from prior fasciotomy procedure for compartment syndrome psych - a/o x 3 Discharge Plan Discharge Items Patient Disposition: Home - Self-Care Reason For Visit: RIGHT LUMBAR RADICULOPATHY Discharge Diagnosis: 1. lumbar spine degenerative disc disease with resulting right leg rad iculopathy; worst disease radiographically is at L4-L5 2. elevated glucose (175) - follow-up with your family doctor for this 3. sinusitis Activity: Per Instructions section Lifting: No more than 10 pounds Sexual Activity: Wait until after follow-up appointment Exercise/Sports: Wait until after follow-up appointment Driving/Machine Use: NO DRIVING if taking narcotic pain killer medicine Non-emergency contact: Primary Care Provider and Specialist Call non-emergency contact if: you have any medication questions, your symptoms worsen, your pain is not controlled and your pain is worsening Follow-up/Referrals: Lizz Koenig DO [Physician] - 04/13/24 2:45 pm () Giovanny Gomez DO [Surgeon] - 02/26/24 12:30 pm (Appointment will be with Dena Brink PA-C) Ernestine Marshall DO [Primary Care Provider] - (5-7 days ) Diet: Regular Addtl Attending Provider Instructions: Mr Blount, Ralf were hospitalized due to severe right leg pain likely due to lumbar degenerative joint/disc disease causing nerve impingement on the right side (Lumbar radiculopathy - see handouts). The pain was causing difficulty walking. You received pain medicines, steroids, and other medication to help with the pain. We did not see any evidence of DVT blood clots, poor arterial circulation, or compartment syndrome. You were seen by orthopedics including the spine service. They have recommended conservative treatment including medication, physical therapy, and close outpatient follow-up. An injection into the spine is another treatment option down the line if things don't improve after a few weeks. Back & leg pain from lumbar spine issues can take weeks to months to fully resolve, especially the nerve pain. Recommendations - 1. no heavy lifting over 10 pounds 2. no heavy exertional activities at this time 3. light walking is OK and is encouraged, as tolerated 4. strongly consider outpatient physical therapy - you can likely start this in about 2 weeks or so 5. please talk to your family doctor about your blood sugar; it was elevated to 175 this morning. It is possible the steroids are causing it to be high, but we don't want to miss early pre-diabetes. You will need something called a "hemoglobin a1c" checked by your family doctor. 6. start back gabapentin for nerve pain. Take 300mg at bedtime for about 3 days. Then try increasing it to twice daily for about a week. After that try three times daily, as tolerated. 7. dexamethasone steroid - start this tomorrow, 02/18/24. Take with food. While on the steroid do not take lrmm-gnj-dbctswy motrin, ibuprofen, aleve, naprosyn, or aspirin. 8. pain medicine - * hydrocodone-acetaminophen - 1 tablet every 6 hours as needed * this is a narcotic pain killer medicine - do not drive a car while taking it, do not drink alcohol while taking this medicine * this medicine will cause constipation * this medicine has tylenol in it; thus, do not take extra otaj-ctb-yilylzu tylenol while on the pain killer medicine 9. for muscle spasm - baclofen 5mg every 8 hours as needed 10. finish your antibiotic course for the sinus infection Follow-up - see separate section Return to [facility] or any other hospital if - * you have uncontrolled back or right leg pain * you have difficulty walking due to pain or loss of function of the right leg * you have difficulty urinating or having bowel movements * any other concerns It was our pleasure to care for you! Pending Studies at Discharge: No Stand-Alone Forms: My [facility], Smoking Cessation Medications and DC Order Prescriptions: New dexamethasone 2 mg tablet 2 mg PO DIRECTED Qty: 18 0RF Rx Instructions: start 02/18/24, take w/ food. 3 tabs PO QD x 3 days; 2 tabs PO QD x 3 days; 1 tab PO QD x 3 days. baclofen 5 mg tablet 5 mg PO Q8H PRN (Reason: muscle spasm/muscle pain) Qty: 20 0RF hydrocodone-acetaminophen 7.5-325 mg tablet 1 tab PO Q6H PRN (Reason: pain) Qty: 20 0RF Continued amoxicillin-pot clavulanate 500-125 mg tablet 1 tab PO Q8H Rx Instructions: Start Date 02/13/24 x7 day supply rosuvastatin 10 mg tablet 10 mg PO DAILY Changed gabapentin 300 mg capsule 300 mg PO TID Qty: 60 0RF Discharge Orders: Discharge Order (Routine); Ordered 02/17/24 Ordered By: Anthony Romero/Other Patient Handouts: Understanding Lumbar Radiculopathy, ED Degenerative Disk Disease Admission Data Admit Date/Time: 02/16/24 14:25 Attending Provider: Anthony Unger Admit Provider: Renetta Alcaraz Primary Care Provider: Ernestine Marshall Other Providers: Renetta Alcaraz; Patricia,Giovanny M Other Interventions: Discharge Summary Assessment (RN) Last Done: 02/17/24 13:09 Hospital Stay Data Consultations Orthopedic Spine Surgery Diagnostic Imagining Performed Duplex Scan Lower Extremity Artery 02/16/24 08:20 RIGHT LOWER EXTREMITY ARTERIAL DOPPLER ULTRASOUND CLINICAL HISTORY: Severe right leg pain. COMPARISON STUDY: No previous studies for comparison. TECHNIQUE: Grayscale, color and duplex Doppler sonography of the arterial system of the right lower extremity was performed. FINDINGS: There is minimal atherosclerotic plaque within the right lower extremity. No elevated velocities were identified. There is triphasic flow within the right common femoral, superficial femoral and popliteal arteries. There is biphasic flow within the right calf vessels. Vessels were patent. IMPRESSION: 1. No evidence for a hemodynamically significant stenosis within the right lower extremity. Minimal atherosclerotic plaque within the right lower extremity. 2. Patent vessels. ACT 112: Negative or not required by law. Electronically signed by: King Yao M.D. 02/16/2024 9:56 AM Tibia/Fibula X-Ray 02/16/24 08:20 XR tibia fibula RT 2V CLINICAL HISTORY: R leg pain, hx compartment syndrome TECHNIQUE: 2 radiographic views of the right leg were obtained. Comparison: None available at the time of this dictation. FINDINGS: Old healed fracture of the mid fibula is seen. Joint spaces are well-preserved. No soft tissue abnormality is seen. IMPRESSION: No evidence of acute osseous injury. Old healed fracture in the mid fibula is again seen. ACT 112: Negative or not required by law. Electronically signed by: Jamie Ng M.D. 02/16/2024 8:55 AM Venous Doppler Study 02/16/24 08:20 US venous doppler LE RT CLINICAL HISTORY: Severe R leg pain TECHNIQUE: Right lower extremity real-time compression venous ultrasound with Color Doppler imaging. Utilizing real-time ultrasonic imaging multiple real time high-resolution ultrasonic images with compression and noncompression maneuvers of the deep venous system in addition to color doppler imaging were performed from the common femoral vein through the proximal calf veins. COMPARISON: None available at the time of this dictation. FINDINGS/IMPRESSION: No deep venous thrombus, there is normal compressibility of the deep venous system from the common femoral vein through the proximal calf veins. No superficial venous thrombosis is identified. ACT 112: Negative or not required by law. Electronically signed by: Jamie Ng M.D. 02/16/2024 9:54 AM Lumbar Spine MRI 02/16/24 10:27 MRI OF THE LUMBAR SPINE WITHOUT CONTRAST CLINICAL HISTORY: Severe right leg pain, right low back pain. COMPARISON STUDY: No previous studies for comparison. TECHNIQUE: Utilizing a 1.5 Vandana magnet and dedicated coil, multiplanar, multiecho imaging of the lumbar spine was performed without IV contrast. FINDINGS: For purposes of numbering on this exam, the L5-S1 disc space is assigned to axial image 27 of 30. There is straightening of the lumbar lordosis. There is no lumbar spine fractures. Exam is mildly compromised by motion artifact. The conus terminates at the T12-L1 level. Paravertebral soft tissues are unremarkable. Several Schmorl's nodes are noted. Loss of height of the superior endplates of L2 on L3 is chronic. A 3.9 cm T2 hypointense lesion within the left iliac bone may contain fluid fluid levels. This is likely benign. Moderate multilevel degenerative disc disease and mild facet arthrosis is present. L1-2: The central canal and neural foramen are patent. L2-3: There is mild disc bulge. The central canal and neural foramen are patent. L3-4: There is mild disc bulge. The central canal is patent. There is mild bilateral neural foraminal stenosis. L4-5: Moderate to space narrowing is noted with disc bulge. Superimposed right foraminal disc protrusion is present. There is moderate narrowing of the right lateral recess and moderate to severe narrowing of the right neural foramen. There is moderate narrowing of the left neural foramen. There is no significant central canal stenosis. L5-S1: Moderate disc space narrowing is noted. There is disc bulge. Right foraminal annular tear with disc protrusion is present. There is mild facet arthrosis. The central canal is patent. There is moderate bilateral neural foraminal stenosis, greater on the left. IMPRESSION: 1. Moderate multilevel degenerative disc disease and moderate facet arthrosis within the lumbar spine. 2. Multilevel disc bulges. Superimposed right foraminal disc protrusion at L4- L5. Findings result in moderate narrowing of the right lateral recess and moderate to severe narrowing of the right neural foramen. 3. Multilevel neural foraminal stenosis, as above. 4. No significant central canal stenosis. 5. Exam mildly compromised by motion artifact. No acute fractures. ACT 112: Negative or not required by law. Electronically signed by: King Yao M.D. 02/16/2024 12:28 PM Pending Results Patient Have Any Pending Studies at Discharge: No Discharge Instructions Given to Patient (Per Discharging Provider) Ralf Khan were hospitalized due to severe right leg pain likely due to lumbar degenerative joint/disc disease causing nerve impingement on the right side (Lumbar radiculopathy - see handouts). The pain was causing difficulty walking. You received pain medicines, steroids, and other medication to help with the pain. We did not see any evidence of DVT blood clots, poor arterial circulation, or compartment syndrome. You were seen by orthopedics including the spine service. They have recommended conservative treatment including medication, physical therapy, and close outpatient follow-up. An injection into the spine is another treatment option down the line if things don't improve after a few weeks. Back & leg pain from lumbar spine issues can take weeks to months to fully resolve, especially the nerve pain. Recommendations - 1. no heavy lifting over 10 pounds 2. no heavy exertional activities at this time 3. light walking is OK and is encouraged, as tolerated 4. strongly consider outpatient physical therapy - you can likely start this in about 2 weeks or so 5. please talk to your family doctor about your blood sugar; it was elevated to 175 this morning. It is possible the steroids are causing it to be high, but we don't want to miss early pre-diabetes. You will need something called a "hemoglobin a1c" checked by your family doctor. 6. start back gabapentin for nerve pain. Take 300mg at bedtime for about 3 days. Then try increasing it to twice daily for about a week. After that try three times daily, as tolerated. 7. dexamethasone steroid - start this tomorrow, 02/18/24. Take with food. While on the steroid do not take trfr-yeo-uvxwkrc motrin, ibuprofen, aleve, naprosyn, or aspirin. 8. pain medicine - * hydrocodone-acetaminophen - 1 tablet every 6 hours as needed * this is a narcotic pain killer medicine - do not drive a car while taking it, do not drink alcohol while taking this medicine * this medicine will cause constipation * this medicine has tylenol in it; thus, do not take extra tgni-qty-lyjnmvr tylenol while on the pain killer medicine 9. for muscle spasm - baclofen 5mg every 8 hours as needed 10. finish your antibiotic course for the sinus infection Follow-up - see separate section Return to [facility] or any other hospital if - * you have uncontrolled back or right leg pain * you have difficulty walking due to pain or loss of function of the right leg * you have difficulty urinating or having bowel movements * any other concerns It was our pleasure to care for you! Total Time Total Time Spent Total Time Spent (In Minutes): 45 Coding Level of Care Code 24011 INP/OBS DISCH >30 MIN Diagnoses Lumbar radiculopathy, acute M54.16 Sinusitis J32.9 Mixed hyperlipidemia E78.2 Hyperglycemia R73.9 Compartment syndrome of lower extremity T79.A29A
--- NOTE | 2024-02-17 13:22 | Orthopedic Consultation ---
Date of Consultation February 17, 2024 Assessment & Plan (1) Lumbar radiculopathy, acute: Dr. Gomez and I have reviewed the films and discussed them with the patient. We believe his right leg symptoms are directly responsible for the lumbar disc herniation. I have reviewed options for treatment with the patient and he would like to consider a transforaminal injection through pain management. He is hesitant to consider any type of surgery as he would require a two-level fusion to adequately address the pathology that is present. An inpatient consult may be reasonable but perform the injection as an outpatient is also reasonable. At this time he does not need urgent back surgery. Continue with pain control measures and contact [facility] pain management for consultation. History of Present Illness Attending Physician: Anthony Unger MD History of Present Illness Patient is a 58-year-old male who presented to the emergency room yesterday due to severe pain in the right leg. He states it started on Friday and progressed to the point where he can no longer stand. Has a history significant for compartment syndrome that leg and states the pain is very similar to what he is experiencing now. He was checked for compartment syndrome which was negative. He had an MRI performed of his lumbar spine with several findings. He has not noted any weakness in the leg. He has been on steroids since his admission. The pain is somewhat better at this point but not gone. He is not having any symptoms on the left-hand side. He denies any other numbness, tingling, or paresthesias. Allergies Allergy/AdvReac Type Severity Reaction Status Date / Time No Known Allergies Allergy Unverified 02/16/24 14:04 Home Medications Medication Instructions Recorded Confirmed Type amoxicillin 500 mg-potassium 1 tab PO Q8H 02/16/24 02/16/24 History clavulanate 125 mg tablet rosuvastatin 10 mg tablet 10 mg PO DAILY 02/16/24 02/16/24 History baclofen 5 mg tablet 5 mg PO Q8H PRN muscle 02/17/24 Rx spasm/muscle pain #20 tabs dexamethasone 2 mg tablet 2 mg PO DIRECTED #18 tabs 02/17/24 Rx gabapentin 300 mg capsule 300 mg PO TID #60 caps 02/17/24 Rx hydrocodone 7.5 mg-acetaminophen 1 tab PO Q6H PRN pain #20 tabs 02/17/24 Rx 325 mg tablet Patient History Medical History (Updated 02/16/24 @ 14:42 by Denton Combs PA-C) Mixed hyperlipidemia Surgical History (Updated 02/16/24 @ 14:28 by Luci Montes PA-C) H/O fasciotomy H/O hand surgery History of appendectomy Family History (Updated 02/16/24 @ 14:29 by Luci Montes PA-C) Brother Diabetes Social History Smoking Status: Never smoker Hx Alcohol Use: No Hx Substance Use: No Preferred Language: Italian Communication Ability: Effective Lumite Injector Required: No Beliefs That Will Affect Care: None Current Living Situation: Spouse Feels Safe at Home: Yes Assistive Devices: None Physical Exam Physical Exam: On exam he is alert and oriented. He answers questions appropriately. His lower extremity motor exam reveals no focal atrophy his strength is 5 out of 5 to detailed muscle testing without exception. Sensations intact to light touch proprioception is also intact. He has well-healed scars from fasciotomy in the right lower extremity. His gait is stable. He has full range of motion of the hips and knees. He is nontender along the lower portion of the lumbar spine. Cardiovascular exam reveals no gross abnormalities respirations are smooth and unlabored. Abdomen soft nontender calves are supple and nontender. Results & Data Diagnostic Findings MRI of the lumbar spine was reviewed. This reveals multilevel degenerative disc disease. There is retrolisthesis at L5-S1. There is a right foraminal disc herniation at L4-5 compressing the exiting L4 nerve root.
[2024-02-17] MEDS: HYDROCODONE/ACETAMINOPHEN 7.5/325MG TAB PO STA (13:35)
[2024-02-17] MEDS ORDERED: GABAPENTIN 300 MG CAP PO SCH (14:00)
== END 2024-02-17 14:18 | disposition home or self-care (01) ==
LOC: EDINP 07:38 → ED 07:38 → SUATTDRO 14:25 → EDINP 15:31 → 3W 18:49